=== PATIENT | male | born 1950 | race Hispanic/Latino ===

== ENCOUNTER 2017-07-23 07:14 | Outpatient (CLI) | payer BC ==
--- NOTE | 2017-07-23 09:18 | Cat Scan Report ---
CT ABDOMEN WITHOUT CONTRAST INDICATION: Abnormal LFTs. COMPARISON: None similar. FINDINGS: Noncontrast abdomen CT performed. LUNG BASES: Slight nonspecific distal esophageal wall prominence/thickening, not excluded for gastroesophageal reflux and/or hiatal hernia, amongst others. ABDOMEN: Please note that sensitivity to detect small visceral lesions is limited due to the absence of intravenous or oral contrast. Small splenic calcified granuloma inferiorly. Otherwise grossly unremarkable unenhanced liver, spleen, gallbladder, pancreas, adrenals, IVC and kidneys. Nonaneurysmal abdominal aorta with atherosclerotic aortoiliac calcifications. No ascites or size significant adenopathy. Nonopacified GI tract evaluation limited, though grossly nonobstructive. Normal appendix. Sigmoid diverticulosis. Small fat-containing umbilical hernia with a transverse neck of 0.7 cm. Multilevel imaged spinal degenerative spurring. Advanced L5-S1 disc degeneration with severe narrowing, vacuum phenomenon, approximately 8 mm spondylolisthesis and bilateral L5 pars defects. CONCLUSION: No acute CT abnormality on this unenhanced exam with various incidental findings, as above. Thank you for the opportunity to participate in this patient's care.
== END 2017-07-23 07:15 | disposition home or self-care (01) ==
LOC: CT 07:14
PROVIDERS: ATTEND Internal Medicine
DX: K57.30 Diverticulosis of large intestine without perforation or abscess without bleeding (principal); K42.9 Umbilical hernia without obstruction or gangrene; R94.5 Abnormal results of liver function studies; I70.0 Atherosclerosis of aorta; M53.86 Other specified dorsopathies, lumbar region; M51.36 Other intervertebral disc degeneration, lumbar region; M43.16 Spondylolisthesis, lumbar region
CPT/HCPCS: 74150